=== PATIENT | male | born 1975 ===

== ENCOUNTER 2017-01-13 10:58 | Inpatient (IN) | payer OTHER ==
[2017-01-13 11:16] VITALS: O2SAT 98
[2017-01-13] MEDS ORDERED: Piperacillin/Tazobact 3.375 gm 100 ML IVPB STA (11:47)
[2017-01-13 12:12] LABS: BASO # 0.02 K/mm3 (0.0-2.0); BASO % 0.2 % (0.0-3.0); EOS # 0.6 (0.0-0.7); EOS % 6.1 % (1.5-5.0); GRAN # 7.9 (1.4-6.5); GRAN % 75.3 % (50.0-68.0); LYMPH # 1.2 (1.2-3.4); LYMPH % 11.3 % (22.0-35.0); MEAN CELL VOLUME 83.5 fl (80.0-105.0); MEAN CORPUSCULAR HEMOGLOBIN 28.5 pg (25.0-35.0); MEAN CORPUSCULAR HGB CONC 34.1 g/dl (31.0-37.0); MEAN PLATELET VOLUME 9.9 fl (7.0-11.0); MONO # 0.7 (0.1-0.6); MONO % 7.1 % (1.0-6.0); RED CELL DISTRIBUTION WIDTH 12.7 % (11.5-14.5); WHITE BLOOD COUNT 10.5 10^3/ul (4.5-11.0)
[2017-01-13 12:23] LABS: ALB/GLOB RATIO 1.2 (1.1-1.8); ALKALINE PHOSPHATASE 95 U/L (38-126); ALT/SGPT 40 U/L (7-56); AST/SGOT 26 U/L (17-59); BILIRUBIN,TOTAL 0.7 mg/dL (0.2-1.3); BLOOD UREA NITROGEN 14 mg/dL (7-21); CALCIUM 8.9 mg/dL (8.4-10.5); CARBON DIOXIDE 30 mmol/L (21-33); CHLORIDE 102 mmol/L (95-110); GFR AFRICAN-AMERICAN > 60; GLUCOSE,RANDOM 99 mg/dL (70-110); LIPASE 119 U/L (23-300); POTASSIUM 3.7 mmol/L (3.6-5.0); SODIUM 142 mmol/L (132-148); TOTAL PROTEIN 7.5 g/dL (5.8-8.3)
[2017-01-13 12:30] LABS: PARTIAL THROMBOPLASTIN TIME 27.5 Seconds (23.7-30.8)
--- NOTE | 2017-01-13 12:45 | RAD ---
HISTORY: toe infection, needs admission COMPARISON: No prior. TECHNIQUE: Chest PA and lateral FINDINGS: LUNGS: No active pulmonary disease. PLEURA: No significant pleural effusion identified. No pneumothorax apparent. CARDIOVASCULAR: Normal. OSSEOUS STRUCTURES: No significant abnormalities. VISUALIZED UPPER ABDOMEN: Normal. OTHER FINDINGS: None. IMPRESSION: No active disease.
[2017-01-13 13:39] LABS: PH,URINE 6.5 (4.7-8.0); URINE BILIRUBIN NEGATIVE (NEGATIVE); URINE BLOOD NEGATIVE (NEGATIVE); URINE GLUCOSE (UA) NEGATIVE (NEGATIVE); URINE KETONE NEGATIVE (NEGATIVE); URINE LEUKOCYTE ESTERASE NEGATIVE Leu/uL (NEGATIVE); URINE PROTEIN TRACE mg/dL (<30 mg/dL); URINE UROBILINOGEN 0.2 E.U./dL (<1 E.U./dL)
[2017-01-13 13:41] LABS: URINE APPEARANCE CLEAR (CLEAR); URINE COLOR YELLOW (YELLOW)
[2017-01-13 13:43] LABS: URINE RBC NEGATIVE /hpf (0-2); URINE WBC NEGATIVE /hpf (0-6)
--- NOTE | 2017-01-13 13:45 | ED PDOC ---
Arrival/HPI - General Chief Complaint: Medical Clearance Time Seen by Provider: 01/13/17 11:16 Historian: Patient - History of Present Illness Narrative History of Present Illness (Text): 01/13/17 13:42 41 y.o. male whose pmhx includes dermatitis, b/L LE ulcers and a non-healing 3rd R toe ulcer, who is sent by Dr. Arcos to the ED because the patient has been taking augmentin for several days for his 3rd R toe ulcer which was found to be infected and has not been gaining any improvement and it continues to hurt. No fever. Given his no improvement, he is in the ED because he needs to be admitted for iv antibiotics and ID consult. Past Medical History - Infectious Disease Hx of Infectious Diseases: None - Psychiatric Hx Substance Use: No - Surgical History Hx Tonsillectomy: Yes - Anesthesia Hx Anesthesia: Yes Hx Anesthesia Reactions: No Family/Social History Family/Social History: No Known Family HX Smoking Status: Never Smoked Hx Alcohol Use: No Hx Substance Use: No Allergies/Home Meds Allergies/Adverse Reactions: Allergies No Known Allergies Allergy (Verified 01/13/17 11:12) Home Medications: Home Meds Medication Instructions Recorded Confirmed Amoxicillin/Potassium Clav 1 tab PO BID 01/13/17 01/13/17 [Amox-Clav 875-125 mg Tablet] Review of Systems - Physician Review All systems were reviewed & negative as marked: Yes - Review of Systems Constitutional: absent: Fevers Respiratory: absent: SOB Cardiovascular: Normal Gastrointestinal: Normal Skin: Ulcer (nonhealing ulcer R 3rd toe) Physical Exam Vital Signs Temp Pulse Resp BP Pulse Ox 01/13/17 12:16 69 18 105/71 98 01/13/17 11:15 97.8 F 73 16 107/74 98 Temperature: Afebrile Blood Pressure: Normal Pulse: Regular Respiratory Rate: Normal Appearance: Positive for: Well-Appearing, Non-Toxic, Comfortable Pain Distress: None Mental Status: Positive for: Alert and Oriented X 3 - Systems Exam Head: Present: Atraumatic, Normocephalic Pupils: Present: PERRL Extroacular Muscles: Present: EOMI Conjunctiva: Present: Normal Mouth: Present: Moist Mucous Membranes Neck: Present: Normal Range of Motion Respiratory/Chest: Present: Clear to Auscultation, Good Air Exchange. No: Respiratory Distress, Accessory Muscle Use Cardiovascular: Present: Regular Rate and Rhythm, Normal S1, S2. No: Murmurs Abdomen: Present: Normal Bowel Sounds. No: Tenderness, Distention, Peritoneal Signs Back: Present: Normal Inspection Upper Extremity: Present: Normal Inspection. No: Cyanosis, Edema Lower Extremity: Present: Other (b/L LE were just dressed by Dr. Arcos - will not take down) Neurological: Present: GCS=15, CN II-XII Intact, Speech Normal Skin: Present: Warm, Dry, Normal Color. No: Rashes Psychiatric: Present: Alert, Oriented x 3, Normal Insight, Normal Concentration Medical Decision Making ED Course and Treatment: 01/13/17 13:47 Patient with R 3rd toe ulcer infection, sent for admission for iv antibiotics and ID consult - will start zosyn and vanco and consult placed for Dr. Soto. Patient is being admitted because he has failed outpatient antibiotic therapy. He will also need a MRI to r/o osteomyelitis. Case discussed with Dr. Oliva for admission to the hospitalist service. EKG: NSR @ 71; no ST/T changes; normal intervals; normal axis. - Lab Interpretations Lab Results: 01/13/17 12:08 01/13/17 12:08 Lab Results 01/13/17 12:08: Sodium 142, Potassium 3.7, Chloride 102, Carbon Dioxide 30, Anion Gap 14, BUN 14, Creatinine 1.0, Est GFR ( Amer) > 60, Est GFR (Non- Af Amer) > 60, Random Glucose 99, Calcium 8.9, Total Bilirubin 0.7, AST 26, ALT 40, Alkaline Phosphatase 95, Total Protein 7.5, Albumin 4.1, Globulin 3.4, Albumin/Globulin Ratio 1.2, Lipase 119 01/13/17 12:08: PT 10.8, INR 1.00, APTT 27.5 01/13/17 12:08: WBC 10.5 D, RBC 4.67, Hgb 13.3 L, Hct 39.0 L, MCV 83.5, MCH 28.5, MCHC 34.1, RDW 12.7, Plt Count 253, MPV 9.9, Gran % 75.3 H, Lymph % (Auto ) 11.3 L, [place] % (Auto) 7.1 H, Eos % (Auto) 6.1 H, Baso % (Auto) 0.2, Gran # 7.90 H, Lymph # 1.2, [place] # 0.7 H, Eos # 0.6, Baso # 0.02 - RAD Interpretation Radiology Orders: 01/13/17 11:49 CHEST TWO VIEWS (PA/LAT) [RAD] Stat - Medication Orders Current Medication Orders: Discontinued Medications Vancomycin HCl 1 gm/ Sodium (Chloride) 250 mls @ 133.333 mls/hr IV STAT STA PRN Reason: Protocol Stop: 01/13/17 13:39 Last Admin: 01/13/17 13:07 Dose: 133.333 mls/hr eMAR Start Stop Document 01/13/17 13:07 IT (Rec: 01/13/17 13:08 IT [id number]) Intravenous Solution Start Date 01/13/17 Start Time 13:07 End Date 01/13/17 End time 15:02 Total Infusion Time 115 Piperacillin Sod/Tazobactam Sod (Zosyn 3.375 In Ns 100ml) 100 mls @ 200 mls/hr IVPB STAT STA PRN Reason: Protocol Stop: 01/13/17 12:16 Last Admin: 01/13/17 12:34 Dose: 200 mls/hr eMAR Start Stop Document 01/13/17 12:34 IT (Rec: 01/13/17 12:34 IT [id number]) Intravenous Solution Start Date 01/13/17 Start Time 12:30 End Date 01/13/17 End time 13:00 Total Infusion Time 30 Disposition/Present on Arrival - Present on Arrival Any Indicators Present on Arrival: No History of DVT/PE: No History of Uncontrolled Diabetes: No Urinary Catheter: No History of Decub. Ulcer: No History Surgical Site Infection Following: None - Disposition Have Diagnosis and Disposition been Completed?: Yes Diagnosis: Infected stasis ulcer of left lower extremity Disposition: HOSPITALIZED Disposition Time: 12:00 Patient Plan: Admission Condition: FAIR
[2017-01-13 13:56] LABS: MAGNESIUM 2.2 mg/dL (1.7-2.2); PHOSPHOROUS 3.3 mg/dL (2.5-4.5)
[2017-01-13] MEDS ORDERED: Piperacillin/Tazobact 3.375 gm 100 ML IVPB SCH (14:00)
--- NOTE | 2017-01-13 14:15 | CP.PCM.HP ---
<Joan Melo - Last Filed: 01/13/17 14:38> History of Present Illness - History of Present Illness History of Present Illness: Patient is a 41 year old male with history of eczema was sent to the ED by Manager [employer] for evaluation of non-healing R toe ulcer on 3rd toe. Per director transition , patient had failed outpatient therapy. Was prescribed Augmentin, which he took for two days. Patient states that toe ulcer started in May 2016. Initially started with swelling then has progressively gotten worse. Occasionally has shooting pain in between 3rd and 4th toe, however has not taken pain medication for it. Patient sees director transition for wound care once a week. Never had this in the past. Denies any drainage from the wound, only reports having minimal bleeding. Wound cx and sensitivities from 01/11/17 growing staph aureus. Denies any trauma, fevers, chills, nausea, vomiting, numbness, tingling, cp, palpitations, sob, urinary symptoms, changes in bowel habits. Allergies: NKDA, dairy products exacerbates eczema Medications: Augmentin BID Medical Hx: Eczema Surgical Hx: Tonsillectomy at age 7 Social Hx: Denies alcohol, tobacco, drug use Family Hx: Maternal grandmother - DM Present on Admission - Present on Admission Any Indicators Present on Admission: No History of DVT/PE: No History of Uncontrolled Diabetes: No Urinary Catheter: No Decubitus Ulcer Present: No Review of Systems - Constitutional Constitutional: absent: Chills, Fever - EENT Eyes: absent: Change in Vision Ears: absent: Decreased Hearing, Dizziness - Cardiovascular Cardiovascular: Leg Ulcers. absent: Chest Pain, Dyspnea, Lightheadedness - Respiratory Respiratory: absent: Cough, Wheezing - Gastrointestinal Gastrointestinal: absent: Abdominal Pain, Constipation, Diarrhea, Nausea, Vomiting - Genitourinary Genitourinary: absent: Dysuria - Musculoskeletal Musculoskeletal: absent: Numbness, Tingling - Integumentary Integumentary: Dry Skin - Neurological Neurological: absent: Dizziness, Numbness, Headaches, Tingling, Weakness - Psychiatric Psychiatric: absent: Anxiety, Depression Past Patient History - Infectious Disease Hx of Infectious Diseases: None - Past Social History Smoking Status: Never Smoked - PSYCHIATRIC Hx Substance Use: No - SURGICAL HISTORY Hx Tonsillectomy: Yes - ANESTHESIA Hx Anesthesia: Yes Hx Anesthesia Reactions: No Meds Allergies/Adverse Reactions: Allergies Allergy/AdvReac Type Severity Reaction Status Date / Time No Known Allergies Allergy Verified 01/13/17 11:12 Physical Exam - Constitutional Appears: Well, Toxic - Head Exam Head Exam: ATRAUMATIC, NORMAL INSPECTION - Eye Exam Eye Exam: EOMI, Normal appearance Pupil Exam: NORMAL ACCOMODATION - ENT Exam ENT Exam: Mucous Membranes Moist - Neck Exam Neck exam: Positive for: Full Rom - Respiratory Exam Respiratory Exam: Clear to Auscultation Bilateral, NORMAL BREATHING PATTERN. absent: Rales, Rhonchi, Wheezes - Cardiovascular Exam Cardiovascular Exam: REGULAR RHYTHM, +S1, +S2 - GI/Abdominal Exam GI & Abdominal Exam: Normal Bowel Sounds, Soft. absent: Rebound, Rigid, Tenderness - Extremities Exam Extremities exam: Positive for: pedal pulses present. Negative for: calf tenderness Additional comments: Bandage in place by podiatry, extremity exam limited - Back Exam Back exam: NORMAL INSPECTION - Neurological Exam Neurological exam: Alert, CN II-XII Intact, Normal Gait, Oriented x3 - Psychiatric Exam Psychiatric exam: Normal Affect, Normal Mood - Skin Skin Exam: Dry, Normal Color, Warm Results - Vital Signs Recent Vital Signs: Last Vital Signs Temp 98.5 F 01/13/17 13:43 Pulse 70 01/13/17 13:43 Resp 18 01/13/17 13:43 BP 108/79 01/13/17 13:43 Pulse Ox 98 01/13/17 13:43 - Labs Result Diagrams: 01/13/17 12:08 01/13/17 12:08 Labs: Laboratory Results - last 24 hr 01/13/17 13:26 Urine Color Yellow Urine Appearance Clear Urine pH 6.5 Ur Specific [place] 1.020 Urine Protein Trace H Urine Glucose (UA) Negative Urine Ketones Negative Urine Blood Negative Urine Nitrate Negative Urine Bilirubin Negative Urine Urobilinogen 0.2 Ur Leukocyte Esterase Negative Urine RBC Negative Urine WBC Negative Urine Other Mucus Assessment & Plan - Assessment and Plan (Free Text) Assessment: 41 year old male with past medical history of ezcema presents with worsening non -healing R toe ulcer Plan: 1. Worsening non-healing R toe ulcer (Rule out osteomyeolitis) -Stable, afebrile -Abx: vancomycin 1g Q12H, Zosyn 3.375mg Q8H -Wound cx growing staph aureus, sensitivites reviewed -MRI R foot with/without contrast ordered -F/U procalcitonin, ESR/CRP -Tylenol prn pain -MRI from 08/2016 - no evidence of osteo, X Ray from 10/2016 was normal -ID on consult, f/u recommendations -Podiatry on consult, f/u recommendations GI/DVT ppx -Protonix 40mg PO daily -Lovenox 30 sq daily <Marleni Bowden - Last Filed: 01/13/17 17:53> Results - Vital Signs Recent Vital Signs: Last Vital Signs Temp 98.5 F 01/13/17 13:43 Pulse 70 01/13/17 13:43 Resp 18 01/13/17 13:43 BP 108/79 01/13/17 13:43 Pulse Ox 98 01/13/17 13:43 - Labs Result Diagrams: 01/13/17 12:08 01/13/17 12:08 Labs: Laboratory Results - last 24 hr 01/13/17 13:26 Urine Color Yellow Urine Appearance Clear Urine pH 6.5 Ur Specific [place] 1.020 Urine Protein Trace H Urine Glucose (UA) Negative Urine Ketones Negative Urine Blood Negative Urine Nitrate Negative Urine Bilirubin Negative Urine Urobilinogen 0.2 Ur Leukocyte Esterase Negative Urine RBC Negative Urine WBC Negative Urine Other Mucus Attending/Attestation - Attestation I have personally seen and examined this patient.: Yes I have fully participated in the care of the patient.: Yes I have reviewed all pertinent clinical information: Yes Notes (Text): I have seen and examined the patient at bedside. Agree with the above note with the following additions/ exceptions: Briefly this is 41 year old male with history of eczema who was sent by director transition for evaluation of worsening chronic non healing ulcer on the right toe. Osteomyelitis needs to be ruled out. Will do MRI, wound cultures and procal. Start vanco and zosyn. Will do MICHAEL. Will consult ID and podiatry. Upon discharge patient will follow up with Dr Dai. Dr Marleni Bowden
[2017-01-13] MEDS ORDERED: Vancomycin 1gm in NS 250ml 1 GM/250 ML BAG IVPB SCH (14:30)
--- NOTE | 2017-01-13 16:42 | CP.PCM.CON ---
History of Present Illness - History of Present Illness History of Present Illness: Infectious Disease Consultation: January 13, 2017 41 yo male with history of eczema presented to Wound Care clinic for non- healing toe ulcer of the right third toe. The patient was given Augmentin in the outpatient setting without improvement. The patient states that the ulcer has been present since May 2016. Multiple wound cultures are showing MSSA however I do suspect the patient has some level of peripheral vascular disease. Corynebacterium seen in one wound culture in the past month as well. PMHx: Eczema PSHx: Tonsillectomy at age 7 Allergies: NKDA Social Hx: No tobacco, EtOH, or illicit drug use Active Medications Acetaminophen (Tylenol 325mg Tab) 650 mg PO Q6H PRN PRN Reason: Pain, Mild (1-3) Piperacillin Sod/Tazobactam Sod (Zosyn 3.375 In Ns 100ml) 100 mls @ 200 mls/hr IVPB Q8 JAVIER PRN Reason: Protocol Stop: 01/13/17 22:29 Vancomycin HCl (Vancomycin 1gm) 1 gm in 250 mls @ 167 mls/hr IVPB Q12H JAVIER PRN Reason: Protocol Family Hx: DM - grandmother ROS: No fevers, chills, nausea, vomiting, diarrhea, headaches, dizziness, chest pain , abdominal pain, melena, hematuria, hematemesis, hematochezia, depression, anxiety. Past Patient History - Infectious Disease Hx of Infectious Diseases: None - Past Social History Smoking Status: Never Smoked - PSYCHIATRIC Hx Substance Use: No - SURGICAL HISTORY Hx Tonsillectomy: Yes - ANESTHESIA Hx Anesthesia: Yes Hx Anesthesia Reactions: No Meds Allergies/Adverse Reactions: Allergies Allergy/AdvReac Type Severity Reaction Status Date / Time No Known Allergies Allergy Verified 01/13/17 11:12 - Medications Medications: Current Medications Acetaminophen (Tylenol 325mg Tab) 650 mg PO Q6H PRN PRN Reason: Pain, Mild (1-3) Piperacillin Sod/Tazobactam Sod (Zosyn 3.375 In Ns 100ml) 100 mls @ 200 mls/hr IVPB Q8 JAVIER PRN Reason: Protocol Stop: 01/13/17 22:29 Vancomycin HCl (Vancomycin 1gm) 1 gm in 250 mls @ 167 mls/hr IVPB Q12H JAVIER PRN Reason: Protocol Physical Exam - Constitutional Appears: Non-toxic, No Acute Distress, Chronically Ill - Head Exam Head Exam: ATRAUMATIC, NORMOCEPHALIC - Eye Exam Eye Exam: EOMI, PERRL Pupil Exam: NORMAL ACCOMODATION, PERRL - ENT Exam ENT Exam: Mucous Membranes Moist, Normal External Ear Exam, TM's Normal Bilaterally - Neck Exam Neck exam: Positive for: Full Rom, Normal Inspection - Respiratory Exam Respiratory Exam: Clear to Auscultation Bilateral, NORMAL BREATHING PATTERN. absent: Rales, Rhonchi, Wheezes - Cardiovascular Exam Cardiovascular Exam: REGULAR RHYTHM, RRR, +S1, +S2 - GI/Abdominal Exam GI & Abdominal Exam: Normal Bowel Sounds, Soft. absent: Distended, Tenderness - Extremities Exam Extremities exam: Positive for: joint swelling, pedal edema Additional comments: right 3rd toe ulceration... heavily bandaged. - Neurological Exam Neurological exam: Alert, CN II-XII Intact, Oriented x3 - Psychiatric Exam Psychiatric exam: Normal Affect, Normal Mood - Skin Additional comments: As above. Results - Vital Signs Recent Vital Signs: Last Vital Signs Temp 98.5 F 01/13/17 13:43 Pulse 70 01/13/17 13:43 Resp 18 01/13/17 13:43 BP 108/79 01/13/17 13:43 Pulse Ox 98 01/13/17 13:43 - Labs Result Diagrams: 01/13/17 12:08 01/13/17 12:08 Labs: Laboratory Results - last 24 hr 01/13/17 13:26 Urine Color Yellow Urine Appearance Clear Urine pH 6.5 Ur Specific [place] 1.020 Urine Protein Trace H Urine Glucose (UA) Negative Urine Ketones Negative Urine Blood Negative Urine Nitrate Negative Urine Bilirubin Negative Urine Urobilinogen 0.2 Ur Leukocyte Esterase Negative Urine RBC Negative Urine WBC Negative Urine Other Mucus Assessment & Plan - Assessment and Plan (Free Text) Assessment: 41 yo male giving only a past medical history of eczema. The patient has a right foot 3rd toe ulceration present for over 7 months with treatment with Augmentin. The patient has grown MSSA on multiple cultures taken since June 2016 and as resent as December 2016. Noted MRI ordered. Started on Vancomycin and Zosyn for antibiotic coverage. Renal function is adequate. Given the culture results, would consider deescalation of the Zosyn to nafcillin , Ancef, or Unasyn. I do suspect concentration of antibiotic given orally was low and the patient may have some level of peripheral vascular disease. Spoke with Dr. Arcos earlier. Spoke with Dr. Jazlyn Bowden this afternoon. Thank you for allowing me to participate in the care of the patient, we will follow with you.
[2017-01-13 17:50] VITALS: BMI 26.5
[2017-01-13] MEDS ORDERED: Pneumococcal 23-Valent Vaccine IM ONE (17:51)
[2017-01-13] MEDS ORDERED: Gadodiamide 287 MG/ML VIAL (15ML) IV ONE (18:20)
--- NOTE | 2017-01-13 20:17 | MRI ---
EXAM: MR Right Lower Extremity Without and With Intravenous Contrast, Foot EXAM DATE/TIME: 01/13/2017 1:48 PM CLINICAL HISTORY: The patient age is 41 years old and is male; Pain; Foot; Right; Patient HX: ? Osteo; Additional info: Rule out osteomyeolitis Facility exam id and description: Mri footwwort foot w/ w/o contrast right TECHNIQUE: Multiplanar magnetic resonance images of the right foot without and with intravenous contrast. CONTRAST: 15 mL of omniscan administered intravenously. COMPARISON: MR - FOOT W/O CONTRAST RIGHT 08/31/2016 11:41:35 AM FINDINGS: LIGAMENTS: Medial collateral: No visible acute tear. Lateral collateral: No visible acute tear. Lisfranc: No visualized acute tear. TENDONS: Flexor: No visualized acute tear. Extensor: No visualized acute tear. Muscles: No acute abnormality. Fluid: Minimal effusions are identified within the first MTP joint and first IP joint. There is a small tibiotalar joint effusion extending posterior to the joint. Sinus tarsi: Mild edema is identified within the sinus tarsi. Plantar fascia: No visualized acute tear. Bones/joints: There is significant enhancing edema identified involving the middle third phalanx, with additional edema within the proximal third phalanx. This is consistent with osteomyelitis in the appropriate clinical setting, and a progression compared to the prior study. Soft tissues: There is significant soft tissue swelling at the dorsum of the foot, suggestive of cellulitis. Additional soft tissue swelling is identified of the first through third digits. Other findings: The hindfoot extends out of the field of view of this study. IMPRESSION: 1. There is significant soft tissue swelling at the dorsum of the foot, suggestive of cellulitis. Additional soft tissue swelling is identified of the first through third digits. 2. There is significant enhancing edema identified involving the middle third phalanx, with additional edema within the proximal third phalanx. This is consistent with osteomyelitis in the appropriate clinical setting, and a progression compared to the prior study. 3. Minimal effusions are identified within the first MTP joint and first IP joint. 4. Additional findings described above.
[2017-01-13] MEDS: ceFAZolin 1 gm in NS 1 GM/100 ML BAG IVPB SCH ×2 (20:35→21:00)
[2017-01-13] MEDS: Vancomycin 1gm in NS 250ml 1 GM/250 ML BAG IVPB SCH (21:46)
[2017-01-14] MEDS: Pantoprazole 40 mg EC Tab PO SCH ×2 (05:44→05:47)
[2017-01-14] MEDS: ceFAZolin 1 gm in NS 1 GM/100 ML BAG IVPB SCH ×3 (05:44→21:28)
[2017-01-14 07:12] LABS: BASO # 0.01 K/mm3 (0.0-2.0); BASO % 0.2 % (0.0-3.0); EOS # 0.6 (0.0-0.7); GRAN # 3.33 (1.4-6.5); GRAN % 51.9 % (50.0-68.0); HEMATOCRIT 36.8 % (42.0-52.0); LYMPH # 1.9 (1.2-3.4); LYMPH % 29.2 % (22.0-35.0); MEAN CELL VOLUME 83.6 fl (80.0-105.0); MEAN CORPUSCULAR HGB CONC 33.4 g/dl (31.0-37.0); MEAN PLATELET VOLUME 9.9 fl (7.0-11.0); MONO # 0.6 (0.1-0.6); MONO % 8.7 % (1.0-6.0); RED CELL DISTRIBUTION WIDTH 12.6 % (11.5-14.5); WHITE BLOOD COUNT 6.4 10^3/ul (4.5-11.0)
[2017-01-14 07:27] LABS: ALB/GLOB RATIO 1.2 (1.1-1.8); ALKALINE PHOSPHATASE 77 U/L (38-126); ALT/SGPT 30 U/L (7-56); AST/SGOT 21 U/L (17-59); BILIRUBIN,TOTAL 0.7 mg/dL (0.2-1.3); BLOOD UREA NITROGEN 11 mg/dL (7-21); CALCIUM 8.7 mg/dL (8.4-10.5); CARBON DIOXIDE 27 mmol/L (21-33); CHLORIDE 106 mmol/L (98-107); GFR AFRICAN-AMERICAN > 60; GLUCOSE,RANDOM 90 mg/dL (70-110); POTASSIUM 3.5 mmol/L (3.6-5.0); SODIUM 141 mmol/L (132-148); TOTAL PROTEIN 6.4 g/dL (5.8-8.3)
--- NOTE | 2017-01-14 08:18 | CARD ---
APPROVED REPORT EKG Measurement Heart [id number] <Conclusion> Normal sinus rhythm Normal ECG
[2017-01-14] MEDS ORDERED: Potassium Chloride 40 mEq/30 ml LIQ UD PO ONE (08:54)
[2017-01-14] MEDS ORDERED: Vancomycin 1gm in NS 250ml 1 GM/250 ML BAG IVPB SCH (10:00)
--- NOTE | 2017-01-14 11:12 | US ---
PROCEDURE: Lower extremity MICHAEL exam HISTORY: Peripheral vascular disease with pain and claudication. PHYSICIAN(S): Dwain Bradshaw MD. FINDINGS: The resting MICHAEL's are normal: right, 1.14and left, 1.19. The brachial systolic pressures are symmetric. The high thigh pressures and waveforms are relatively normal. The calf PVR waveforms augment normally. No significant gradients are noted across the thighs. The ankle and metatarsal waveforms are relatively normal and symmetric. No significant pressure gradients are noted across the lower legs. IMPRESSION: 1. Normal MICHAEL and PVR examination at rest.
--- NOTE | 2017-01-14 11:26 | CP.PCM.PN ---
<Joan Melo - Last Filed: 01/14/17 17:25> Subjective - Date & Time of Evaluation Date of Evaluation: 01/14/17 Time of Evaluation: 07:10 - Subjective Subjective: Hospitalist Service Progress Note: Patient seen and examined at bedside. Per nursing no acute events overnight. Patient is doing well, offers no complaints at this time. Dressing changed by podiatry this am. Denies pain, fever, chills, nausea, vomiting, cp, palpitations , sob, abdominal pain, urinary symptoms. Objective - Vital Signs/Intake and Output Vital Signs (last 24 hours): Temp Pulse Resp BP Pulse Ox 97.6 F 63 20 96/57 L 98 01/14/17 08:32 01/14/17 08:32 01/14/17 08:32 01/14/17 08:32 01/14/17 08:32 Intake and Output: 01/14/17 01/14/17 06:59 18:59 Intake Total 690 Balance 690 - Medications Medications: Current Medications Acetaminophen (Tylenol 325mg Tab) 650 mg PO Q6H PRN PRN Reason: Pain, Mild (1-3) Vancomycin HCl (Vancomycin 1gm) 1 gm in 250 mls @ 167 mls/hr IVPB Q12 JAVIER PRN Reason: Protocol Last Admin: 01/13/17 21:46 Dose: 167 mls/hr Cefazolin Sodium (Ancef 1gm In Ns) 1 gm in 100 mls @ 100 mls/hr IVPB Q8 JAVIER PRN Reason: Protocol Last Admin: 01/14/17 05:44 Dose: 100 mls/hr Pantoprazole Sodium (Protonix Ec Tab) [address] [facility] Last Admin: 01/14/17 05:47 Dose: Not Given - Labs Labs: 01/14/17 06:50 01/14/17 06:50 PT 10.8 Seconds (9.9-11.8) 01/13/17 12:08 INR 1.00 (0.93-1.08) 01/13/17 12:08 APTT 27.5 Seconds (23.7-30.8) 01/13/17 12:08 - Constitutional Appears: Non-toxic, No Acute Distress - Head Exam Head Exam: ATRAUMATIC, NORMAL INSPECTION - Eye Exam Eye Exam: EOMI, Normal appearance Pupil Exam: NORMAL ACCOMODATION - ENT Exam ENT Exam: Mucous Membranes Moist - Neck Exam Neck Exam: Full ROM - Respiratory Exam Respiratory Exam: Clear to Ausculation Bilateral, NORMAL BREATHING PATTERN. absent: Rales, Rhonchi, Wheezes - Cardiovascular Exam Cardiovascular Exam: REGULAR RHYTHM, +S1, +S2 - GI/Abdominal Exam GI & Abdominal Exam: Soft, Normal Bowel Sounds. absent: Guarding, Rigid, Tenderness - Extremities Exam Extremities Exam: Full ROM. absent: Calf Tenderness Additional comments: Limited extremity exam, wounds dressed by podiatry - Back Exam Back Exam: NORMAL INSPECTION - Neurological Exam Neurological Exam: Alert, Awake, Normal Gait, Oriented x3 - Psychiatric Exam Psychiatric exam: Normal Affect, Normal Mood - Skin Skin Exam: Dry, Normal Color, Warm Assessment and Plan - Assessment and Plan (Free Text) Assessment: 41 year old male with past medical history of ezcema presents with worsening non -healing R toe ulcer Plan: 1. Worsening non-healing R toe ulcer (Rule out osteomyeolitis) -Stable, afebrile -MRI finding consistent with osteomyelotits -Abx: Vancomycin 1g Q12H, Ancef 1g Q8H -Wound cx growing staph aureus, sensitivites reviewed -Patient will need 4-6 weeks of IV abx, will need PICC line -HBO therapy to begin tomorrow -Tylenol prn pain -ID on consult, f/u recommendations -Podiatry on consult, f/u recommendations 2. Hypokalemia -Potassium 3.5 today, repleted -Continue to monitor GI/DVT ppx -Protonix 40mg PO daily -Lovenox 30 sq daily <Marleni Bowden - Last Filed: 01/16/17 13:39> Objective - Vital Signs/Intake and Output Vital Signs (last 24 hours): Temp Pulse Resp BP Pulse Ox 97.5 F L 69 18 110/71 98 01/15/17 07:49 01/15/17 07:49 01/15/17 07:49 01/15/17 07:49 01/15/17 07:49 - Labs Labs: 01/15/17 06:30 01/15/17 06:30 PT 10.8 Seconds (9.9-11.8) 01/13/17 12:08 INR 1.00 (0.93-1.08) 01/13/17 12:08 APTT 27.5 Seconds (23.7-30.8) 01/13/17 12:08 Attending/Attestation - Attestation I have personally seen and examined this patient.: Yes I have fully participated in the care of the patient.: Yes I have reviewed all pertinent clinical information, including history, physical exam and plan: Yes Notes (Text): I have seen and examined the patient at bedside. 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 MRI is consistent with Osteomyelitis. Patient will need 4-6week of Rocephin which needs to be arranged. Will discuss with CM. MICHAEL showed normal PVR. ID and podiatry consult appreciated. Upon discharge patient will follow up with Dr Dai. Dr Marleni Bowden
--- NOTE | 2017-01-14 11:41 | PN ---
DATE: 01/14/2017 SUBJECTIVE: This is a 41-year-old known to me, seeing for ulceration to his third toe on his right foot and a nonhealing ulceration to the medial calf on his left leg. The patient was sent by me yesterday to the hospital for acute care secondary to being on outpatient Augmentin with a high suspicion of osteomyelitis to the foot. When he was seen yesterday, the toe was still swollen and red and it was decided to start IV antibiotics. PHYSICAL EXAMINATION: GENERAL: The patient is seen at bedside. He is alert and oriented and in no acute distress. VITAL SIGNS: His temperature is 97.6, pulse is 63, blood pressure 96/57, respirations are 20 and oxygen saturation was 98%. EXTREMITIES: The patient's lower extremity was reviewed. He has 2/4 palpable pedal pulses bilaterally. He has intact neurological sensation to his feet bilateral. He has intact musculoskeletal structures to the feet bilateral. 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 The ulceration on his calf had healed and just recently opened with the new onset of this toe infection. The patient did have a foot MRI and the MRI is positive for osteomyelitis of that third toe. The toe at the present time has no bone exposed, there is no tendon exposed, but the wound is deep through the fat layers; the measurements are approximately 3.5 x 0.5 x 0.3 cm in depth. There is no pus, there is a moderate amount of drainage, but the toe itself is red and swollen which clinically correlates the MRI findings. LABORATORY DATA: The patient's labs show white blood cell count of 6.4, H and H is 12.3 and 36.8. ESR is only 15. The patient's microbiology; his left culture was done on 01/11 and it was for a sensitive Staphylococcus aureus. The patient's chemistry also was reviewed and that was grossly within normal limits. ASSESSMENT: Sensitive Staphylococcus aureus infection to the third toe, osteomyelitis, right foot. PLAN OF TREATMENT: The patient will need 4 to 6 weeks of IV antibiotics as determined by infectious disease. The patient also will be considered for hyperbaric oxygen therapy. The patient will be put on consult to have Dr. Lew look at him and see if he is a candidate and he will also need a PICC line, order was placed on the chart today. The patient's wounds were dressed today with Xeroform and a dry sterile dressing, which will be the dressing of choice while he is here on his foot and also on his leg. The patient will be seen and followed. Mallika Arcos DPM
[2017-01-14] MEDS: Vancomycin 1gm in NS 250ml 1 GM/250 ML BAG IVPB SCH ×2 (11:49→22:38)
--- NOTE | 2017-01-14 17:24 | CON ---
DATE: HISTORY OF PRESENT ILLNESS: I was called to see him by Dr. Arcos, the inspector set up and lay out who cleared him medically for hyperbaric oxygen. He is a 41-year-old man who presents with bilateral lower extremity ulcers and nonhealing third right toe ulcer. He is on Augmentin on the outpatient. It did not heal. he came to the hospital. On MRI, it shows osteomyelitis and cellulitis. PAST MEDICAL HISTORY: He has a past medical history of nonhealing ulcers in the past. He has had a tonsillectomy in the past. FAMILY HISTORY: No known family history. SOCIAL HISTORY: Never smoked or drugs. No alcohol. MEDICATIONS: He is on Augmentin that was the only medication he was on the outpatient. ALLERGIES: NO KNOW DRUG ALLERGIES. REVIEW OF SYSTEMS: No acute vision changes or hearing changes. No sore throat. No neck pain. No chest pain or palpitations. No coughing or shortness of breath. No mucus. No wheezing. No abdominal pain. No nausea, vomiting, constipation or diarrhea. He has a right third toe ulcer, nonhealing. PHYSICAL EXAMINATION: VITAL SIGNS: He has a 97.8 temperature, 73 pulse, 16 respiratory rate, 107/74 blood pressure, 90% O2 sat on room air. HEENT: Head is atraumatic, normocephalic. Extraocular muscles are intact. Pupils are equal, reactive to light and accommodation. Throat is moist. NECK: Supple. GENERAL: Alert, oriented x3, well-appearing, comfortable. HEART: Regular rate. Normal S1 and S2. LUNGS: Decreased breath sounds, but clear to auscultation. ABDOMEN: Soft, nontender. Positive bowel sounds. No guarding. No rebound. No CVA tenderness. EXTREMITIES: The right foot is bandaged. He has got a third right foot ulcer, nonhealing. There is no edema of the extremities. NEUROLOGIC: GCS is 15. Cranial nerves II through XII grossly intact. Alert, oriented x3. SKIN: Warm and dry except for the right foot ulcer. LABORATORY DATA: He had multiple tests done here. He has a 6.4 white count, 12.3 hemoglobin, 36.8 hematocrit with 235 platelets. The INR is 1. He has a 141 sodium, potassium 3.5, BUN is 11, creatinine 0.9, GFR is greater than 60, sugar is 90, calcium is 8.7, total bilirubin is 0.7, AST is 21, ALT is 30, alkaline phosphatase 77, total protein 6.4, C-reactive protein His urine was clean. He has a chest x-ray, which shows no acute disease. He has an EKG which shows normal sinus rhythm. He has an MRI of the foot, which showed cellulitis and osteomyelitis. IMPRESSION AND PLAN: He is being seen by podiatry. He is currently on Ancef, Protonix, Tylenol and vancomycin. After review of his meds, medical history, surgical history, physical exam, x-rays, EKGs, MRIs, labs and reviewing of his ears, which are clear with no wax, no infection and the tympanic membranes are visualized and fine, he is medically cleared for hyperbaric oxygen. Jose Rafael Lew DO MTDD
--- NOTE | 2017-01-14 18:59 | CP.PCM.PN ---
Subjective - Date & Time of Evaluation Date of Evaluation: 01/14/17 Time of Evaluation: 16:45 - Subjective Subjective: Infectious Disease Follow Up: January 14, 2017 41 yo male with history of eczema presented to Wound Care clinic for non- healing toe ulcer of the right third toe. The patient was given Augmentin in the outpatient setting without improvement. The patient states that the ulcer has been present since May 2016. Multiple wound cultures are showing MSSA however I do suspect the patient has some level of peripheral vascular disease. Corynebacterium seen in one wound culture in the past month as well. MRI showing osteomyelitis. Objective - Vital Signs/Intake and Output Vital Signs (last 24 hours): Temp Pulse Resp BP Pulse Ox 97.4 F L 70 16 109/66 98 01/14/17 16:00 01/14/17 16:00 01/14/17 16:00 01/14/17 16:00 01/14/17 16:00 Intake and Output: 01/14/17 01/14/17 06:59 18:59 Intake Total 690 660 Output Total 0 Balance 690 660 - Medications Medications: Current Medications Acetaminophen (Tylenol 325mg Tab) 650 mg PO Q6H PRN PRN Reason: Pain, Mild (1-3) Vancomycin HCl (Vancomycin 1gm) 1 gm in 250 mls @ 167 mls/hr IVPB Q12 JAVIER PRN Reason: Protocol Last Admin: 01/14/17 11:49 Dose: 167 mls/hr Cefazolin Sodium (Ancef 1gm In Ns) 1 gm in 100 mls @ 100 mls/hr IVPB Q8 JAVIER PRN Reason: Protocol Last Admin: 01/14/17 14:33 Dose: 100 mls/hr Pantoprazole Sodium (Protonix Ec Tab) 40 mg PO 0600 [facility] Last Admin: 01/14/17 05:47 Dose: Not Given - Labs Labs: 01/14/17 06:50 01/14/17 06:50 PT 10.8 Seconds (9.9-11.8) 01/13/17 12:08 INR 1.00 (0.93-1.08) 01/13/17 12:08 APTT 27.5 Seconds (23.7-30.8) 01/13/17 12:08 - Constitutional Appears: Non-toxic, No Acute Distress, Chronically Ill - Head Exam Head Exam: ATRAUMATIC, NORMOCEPHALIC - Eye Exam Eye Exam: EOMI, PERRL Pupil Exam: NORMAL ACCOMODATION, PERRL - ENT Exam ENT Exam: Mucous Membranes Moist, Normal External Ear Exam, TM's Normal Bilaterally - Neck Exam Neck Exam: Full ROM, Normal Inspection - Respiratory Exam Respiratory Exam: Clear to Ausculation Bilateral, NORMAL BREATHING PATTERN. absent: Rales, Rhonchi, Wheezes - Cardiovascular Exam Cardiovascular Exam: REGULAR RHYTHM, RRR, +S1, +S2 - GI/Abdominal Exam GI & Abdominal Exam: Soft, Normal Bowel Sounds. absent: Distended, Tenderness - Extremities Exam Extremities Exam: Joint Swelling, Pedal Edema Additional comments: right 3rd toe ulceration... heavily bandaged. - Neurological Exam Neurological Exam: Alert, Awake, CN II-XII Intact, Oriented x3 - Psychiatric Exam Psychiatric exam: Normal Affect, Normal Mood - Skin Additional comments: As above Assessment and Plan - Assessment and Plan (Free Text) Assessment: 41 yo male giving only a past medical history of eczema. The patient has a right foot 3rd toe ulceration present for over 7 months with treatment with Augmentin. The patient has grown MSSA on multiple cultures taken since June 2016 and as resent as December 2016. Noted MRI ordered. Started on Vancomycin and Zosyn for antibiotic coverage. Renal function is adequate. Given the culture results, would consider deescalation of the Zosyn to nafcillin , Ancef, or Unasyn. I do suspect concentration of antibiotic given orally was low and the patient may have some level of peripheral vascular disease. Spoke with Dr. Arcos earlier. Spoke with Dr. Jazlyn Bowden. MRI showing osteomyelitis of the right 3rd toe. Can consider use of Rocephin 2gm IV daily for 6 weeks. Can be done at Home IV infusion or through IV Infusion clinic. Thank you for allowing me to participate in the care of the patient, we will follow with you.
[2017-01-15] MEDS: Pantoprazole 40 mg EC Tab PO SCH (06:35)
[2017-01-15] MEDS: ceFAZolin 1 gm in NS 1 GM/100 ML BAG IVPB SCH ×2 (06:35→13:07)
[2017-01-15 07:16] LABS: BASO # 0.01 K/mm3 (0.0-2.0); BASO % 0.1 % (0.0-3.0); EOS # 0.7 (0.0-0.7); EOS % 9.7 % (1.5-5.0); GRAN # 4.26 (1.4-6.5); GRAN % 56.1 % (50.0-68.0); HEMATOCRIT 36.7 % (42.0-52.0); LYMPH % 25.9 % (22.0-35.0); MEAN CORPUSCULAR HEMOGLOBIN 28.1 pg (25.0-35.0); MEAN CORPUSCULAR HGB CONC 33.8 g/dl (31.0-37.0); MEAN PLATELET VOLUME 9.9 fl (7.0-11.0); MONO # 0.6 (0.1-0.6); MONO % 8.2 % (1.0-6.0); RED CELL DISTRIBUTION WIDTH 12.4 % (11.5-14.5); WHITE BLOOD COUNT 7.6 10^3/ul (4.5-11.0)
[2017-01-15 07:47] LABS: ALB/GLOB RATIO 1.2 (1.1-1.8); ALKALINE PHOSPHATASE 84 U/L (38-126); ALT/SGPT 31 U/L (7-56); AST/SGOT 23 U/L (17-59); BILIRUBIN,TOTAL 0.3 mg/dL (0.2-1.3); BLOOD UREA NITROGEN 12 mg/dL (7-21); CALCIUM 8.7 mg/dL (8.4-10.5); CARBON DIOXIDE 26 mmol/L (21-33); CHLORIDE 104 mmol/L (98-107); GFR AFRICAN-AMERICAN > 60; GLUCOSE,RANDOM 93 mg/dL (70-110); POTASSIUM 3.4 mmol/L (3.6-5.0); SODIUM 140 mmol/L (132-148); TOTAL PROTEIN 6.7 g/dL (5.8-8.3)
[2017-01-15 07:50] VITALS: BP 110/71; PULSE 69; RESP 18; TEMP 97.5
[2017-01-15] MEDS: Vancomycin 1gm in NS 250ml 1 GM/250 ML BAG IVPB SCH (09:04)
[2017-01-15] MEDS ORDERED: Potassium Chloride 20 mEq ER Tab PO ONE (09:21)
--- NOTE | 2017-01-15 16:52 | CP.PCM.PN ---
Subjective - Date & Time of Evaluation Date of Evaluation: 01/15/17 Time of Evaluation: 15:15 - Subjective Subjective: Infectious Disease Follow Up: January 14, 2017 41 yo male with history of eczema presented to Wound Care clinic for non- healing toe ulcer of the right third toe. The patient was given Augmentin in the outpatient setting without improvement. The patient states that the ulcer has been present since May 2016. Multiple wound cultures are showing MSSA however I do suspect the patient has some level of peripheral vascular disease. Corynebacterium seen in one wound culture in the past month as well. MRI showing osteomyelitis. Can use Rocephin on discharge for antibiotic treatment. Objective - Vital Signs/Intake and Output Vital Signs (last 24 hours): Temp Pulse Resp BP Pulse Ox 97.5 F L 69 18 110/71 98 01/15/17 07:49 01/15/17 07:49 01/15/17 07:49 01/15/17 07:49 01/15/17 07:49 Intake and Output: 01/15/17 01/15/17 06:59 18:59 Intake Total 1620 480 Balance 1620 480 - Medications Medications: Current Medications Acetaminophen (Tylenol 325mg Tab) 650 mg PO Q6H PRN PRN Reason: Pain, Mild (1-3) Vancomycin HCl (Vancomycin 1gm) 1 gm in 250 mls @ 167 mls/hr IVPB Q12 JAVIER PRN Reason: Protocol Last Admin: 01/15/17 09:04 Dose: 167 mls/hr Cefazolin Sodium (Ancef 1gm In Ns) 1 gm in 100 mls @ 100 mls/hr IVPB Q8 JAVIER PRN Reason: Protocol Last Admin: 01/15/17 13:07 Dose: 100 mls/hr Pantoprazole Sodium (Protonix Ec Tab) 40 mg PO 0600 [facility] Last Admin: 01/15/17 06:35 Dose: 40 mg - Labs Labs: 01/15/17 06:30 01/15/17 06:30 PT 10.8 Seconds (9.9-11.8) 01/13/17 12:08 INR 1.00 (0.93-1.08) 01/13/17 12:08 APTT 27.5 Seconds (23.7-30.8) 01/13/17 12:08 - Constitutional Appears: Non-toxic, No Acute Distress, Chronically Ill - Head Exam Head Exam: ATRAUMATIC, NORMOCEPHALIC - Eye Exam Eye Exam: EOMI, PERRL Pupil Exam: NORMAL ACCOMODATION, PERRL - ENT Exam ENT Exam: Mucous Membranes Moist, Normal External Ear Exam, TM's Normal Bilaterally - Neck Exam Neck Exam: Full ROM, Normal Inspection - Respiratory Exam Respiratory Exam: Clear to Ausculation Bilateral, NORMAL BREATHING PATTERN. absent: Rales, Rhonchi, Wheezes - Cardiovascular Exam Cardiovascular Exam: REGULAR RHYTHM, RRR, +S1, +S2 - GI/Abdominal Exam GI & Abdominal Exam: Soft, Normal Bowel Sounds. absent: Distended, Tenderness - Extremities Exam Extremities Exam: Joint Swelling, Pedal Edema Additional comments: right 3rd toe ulceration... heavily bandaged. - Neurological Exam Neurological Exam: Alert, Awake, CN II-XII Intact, Oriented x3 - Psychiatric Exam Psychiatric exam: Normal Affect, Normal Mood - Skin Additional comments: As Above Assessment and Plan - Assessment and Plan (Free Text) Assessment: 41 yo male giving only a past medical history of eczema. The patient has a right foot 3rd toe ulceration present for over 7 months with treatment with Augmentin. The patient has grown MSSA on multiple cultures taken since June 2016 and as resent as December 2016. Noted MRI ordered. Started on Vancomycin and Zosyn for antibiotic coverage. Renal function is adequate. Given the culture results, would consider deescalation of the Zosyn to nafcillin , Ancef, or Unasyn. I do suspect concentration of antibiotic given orally was low and the patient may have some level of peripheral vascular disease. Spoke with Dr. Arcos yesterday. Spoke with Dr. Jazlyn Bowden. MRI showing osteomyelitis of the right 3rd toe. Can consider use of Rocephin 2gm IV daily for 6 weeks. Can be done at Home IV infusion or through IV Infusion clinic. Thank you for allowing me to participate in the care of the patient, we will follow with you.
--- NOTE | 2017-01-15 17:00 | CP.PCM.DIS ---
<Joan Melo - Last Filed: 01/15/17 17:10> Provider - Provider Date of Admission: 01/13/17 12:56 Attending physician: Marleni Bowden MD Consults: Infectious Disease: Go Podiatry: Josselyn Time Spent in preparation of Discharge (in minutes): 40 Hospital Course - Lab Results Lab Results: Most Recent Lab Values WBC 7.6 10^3/ul (4.5-11.0) 01/15/17 06:30 RBC 4.42 10^6/uL (3.5-6.1) 01/15/17 06:30 Hgb 12.4 g/dL (14.0-18.0) L 01/15/17 06:30 Hct 36.7 % (42.0-52.0) L 01/15/17 06:30 MCV 83.0 fl (80.0-105.0) 01/15/17 06:30 MCH 28.1 pg (25.0-35.0) 01/15/17 06:30 MCHC 33.8 g/dl (31.0-37.0) 01/15/17 06:30 RDW 12.4 % (11.5-14.5) 01/15/17 06:30 Plt Count 239 10^3/uL (120.0-450.0) 01/15/17 06:30 MPV 9.9 fl (7.0-11.0) 01/15/17 06:30 Gran % 56.1 % (50.0-68.0) 01/15/17 06:30 Lymph % (Auto) 25.9 % (22.0-35.0) 01/15/17 06:30 Hale % (Auto) 8.2 % (1.0-6.0) H 01/15/17 06:30 Eos % (Auto) 9.7 % (1.5-5.0) H 01/15/17 06:30 Baso % (Auto) 0.1 % (0.0-3.0) 01/15/17 06:30 Gran # 4.26 (1.4-6.5) 01/15/17 06:30 Lymph # 2.0 (1.2-3.4) 01/15/17 06:30 Hale # 0.6 (0.1-0.6) 01/15/17 06:30 Eos # 0.7 (0.0-0.7) 01/15/17 06:30 Baso # 0.01 K/mm3 (0.0-2.0) 01/15/17 06:30 ESR 15 mm/hr (0.0-15.0) 01/13/17 12:08 PT 10.8 Seconds (9.9-11.8) 01/13/17 12:08 INR 1.00 (0.93-1.08) 01/13/17 12:08 APTT 27.5 Seconds (23.7-30.8) 01/13/17 12:08 Sodium 140 mmol/L (132-148) 01/15/17 06:30 Potassium 3.4 mmol/L (3.6-5.0) L 01/15/17 06:30 Chloride 104 mmol/L (98-107) 01/15/17 06:30 Carbon Dioxide 26 mmol/L (21-33) 01/15/17 06:30 Anion Gap 13 (10-20) 01/15/17 06:30 BUN 12 mg/dL (7-21) 01/15/17 06:30 Creatinine 0.9 mg/dL (0.5-1.4) 01/15/17 06:30 Est GFR ( Amer) > 60 01/15/17 06:30 Est GFR (Non-Af Amer) > 60 01/15/17 06:30 Random Glucose 93 mg/dL (70-110) 01/15/17 06:30 Calcium 8.7 mg/dL (8.4-10.5) 01/15/17 06:30 Phosphorus 3.3 mg/dL (2.5-4.5) 01/13/17 12:08 Magnesium 2.2 mg/dL (1.7-2.2) 01/13/17 12:08 Total Bilirubin 0.3 mg/dL (0.2-1.3) 01/15/17 06:30 AST 23 U/L (17-59) 01/15/17 06:30 ALT 31 U/L (7-56) 01/15/17 06:30 Alkaline Phosphatase 84 U/L (38-126) 01/15/17 06:30 C-React Prot High Sens 7.12 mg/L (1.00-3.00) H 01/13/17 12:08 Total Protein 6.7 g/dL (5.8-8.3) 01/15/17 06:30 Albumin 3.7 g/dL (3.0-4.8) 01/15/17 06:30 Globulin 3.0 gm/dL 01/15/17 06:30 Albumin/Globulin Ratio 1.2 (1.1-1.8) 01/15/17 06:30 Lipase 119 U/L (23-300) 01/13/17 12:08 Procalcitonin < 0.05 NG/ML (0.19-0.49) L 01/13/17 12:08 Urine Color Yellow (YELLOW) 01/13/17 13:26 Urine Appearance Clear (CLEAR) 01/13/17 13:26 Urine pH 6.5 (4.7-8.0) 01/13/17 13:26 Ur Specific [place] 1.020 (1.005-1.035) 01/13/17 13:26 Urine Protein Trace mg/dL (<30 mg/dL) H 01/13/17 13:26 Urine Glucose (UA) Negative mg/dL (NEGATIVE) 01/13/17 13:26 Urine Ketones Negative mg/dL (NEGATIVE) 01/13/17 13:26 Urine Blood Negative (NEGATIVE) 01/13/17 13:26 Urine Nitrate Negative (NEGATIVE) 01/13/17 13:26 Urine Bilirubin Negative (NEGATIVE) 01/13/17 13:26 Urine Urobilinogen 0.2 E.U./dL (<1 E.U./dL) 01/13/17 13:26 Ur Leukocyte Esterase Negative Justin/uL (NEGATIVE) 01/13/17 13:26 Urine RBC Negative /hpf (0-2) 01/13/17 13:26 Urine WBC Negative /hpf (0-6) 01/13/17 13:26 Urine Other Mucus 01/13/17 13:26 - Hospital Course Hospital Course: Patient is a 41 year old male with history of eczema who was sent by groundwater programs director for evaluation of worsening chronic non healing ulcer on the right toe. MRI of foot showed findings consistent with Osteomyelitis. Started vanco and zosyn. ID was consulted and ordered vaco and ancef. MICHAEL was normal. Podiatry was consulted and performed daily dressing changes. Patient to continue HBO treatment. PICC line was placed for continued IV abx therapy. Electrolytes were monitored and repleted as needed. On day of discharge, patient was doing well. Pain was controlled. Ambulating and tolerating diet, afebrile. Patient was medically stable for discharge. Prescription for Rocephin 2g IV daily x 6 weeks given. Patient will follow up with Dr Dai. Discharge Exam - Head Exam Head Exam: ATRAUMATIC, NORMOCEPHALIC - Eye Exam Eye Exam: EOMI, Normal appearance Pupil Exam: NORMAL ACCOMODATION - ENT Exam ENT Exam: Mucous Membranes Dry - Neck Exam Neck exam: Full Rom - Respiratory Exam Respiratory Exam: Clear to PA & Lateral, UNREMARKABLE. absent: Rales, Rhonchi, Wheezes - Cardiovascular Exam Cardiovascular Exam: REGULAR RHYTHM, +S1, +S2 - GI/Abdominal Exam GI & Abdominal Exam: Normal Bowel Sounds, Soft. absent: Rigid, Tenderness - Extremities Exam Additional comments: Extremities dressed by podiatry, exam limited PICC line in place - Back Exam Back exam: NORMAL INSPECTION - Neurological Exam Neurological exam: Alert, Normal Gait, Oriented x3 - Psychiatric Exam Psychiatric exam: Normal Affect, Normal Mood - Skin Skin Exam: Normal Color, Warm Discharge Plan - Discharge Medications Prescriptions: cefTRIAXone [Rocephin] 2 gm IVPB DAILY 42 Days #42 vial - Follow Up Plan Condition: FAIR Disposition: HOME/ ROUTINE Instructions: Wound Infection (DC), Osteomyelitis (DC), Dermatitis (GEN) Additional Instructions: Take medications as directed. Return to Local ER if symptoms worsen. [place] for IV antibiotics at infusion center tomorrow 01/16/2017 at 7AM. IV infusion to begin tomorrow 01/16/2017 at 8AM. Take "A" elevator to 3rd floor for IV antibiotic infusion. <Marleni Bowden - Last Filed: 01/16/17 13:40> Provider - Provider Date of Admission: 01/13/17 12:56 Attending physician: Marleni Bowden MD Hospital Course - Lab Results Lab Results: Most Recent Lab Values WBC 7.6 10^3/ul (4.5-11.0) 01/15/17 06:30 RBC 4.42 10^6/uL (3.5-6.1) 01/15/17 06:30 Hgb 12.4 g/dL (14.0-18.0) L 01/15/17 06:30 Hct 36.7 % (42.0-52.0) L 01/15/17 06:30 MCV 83.0 fl (80.0-105.0) 01/15/17 06:30 MCH 28.1 pg (25.0-35.0) 01/15/17 06:30 MCHC 33.8 g/dl (31.0-37.0) 01/15/17 06:30 RDW 12.4 % (11.5-14.5) 01/15/17 06:30 Plt Count 239 10^3/uL (120.0-450.0) 01/15/17 06:30 MPV 9.9 fl (7.0-11.0) 01/15/17 06:30 Gran % 56.1 % (50.0-68.0) 01/15/17 06:30 Lymph % (Auto) 25.9 % (22.0-35.0) 01/15/17 06:30 Hale % (Auto) 8.2 % (1.0-6.0) H 01/15/17 06:30 Eos % (Auto) 9.7 % (1.5-5.0) H 01/15/17 06:30 Baso % (Auto) 0.1 % (0.0-3.0) 01/15/17 06:30 Gran # 4.26 (1.4-6.5) 01/15/17 06:30 Lymph # 2.0 (1.2-3.4) 01/15/17 06:30 Hale # 0.6 (0.1-0.6) 01/15/17 06:30 Eos # 0.7 (0.0-0.7) 01/15/17 06:30 Baso # 0.01 K/mm3 (0.0-2.0) 01/15/17 06:30 ESR 15 mm/hr (0.0-15.0) 01/13/17 12:08 PT 10.8 Seconds (9.9-11.8) 01/13/17 12:08 INR 1.00 (0.93-1.08) 01/13/17 12:08 APTT 27.5 Seconds (23.7-30.8) 01/13/17 12:08 Sodium 140 mmol/L (132-148) 01/15/17 06:30 Potassium 3.4 mmol/L (3.6-5.0) L 01/15/17 06:30 Chloride 104 mmol/L (98-107) 01/15/17 06:30 Carbon Dioxide 26 mmol/L (21-33) 01/15/17 06:30 Anion Gap 13 (10-20) 01/15/17 06:30 BUN 12 mg/dL (7-21) 01/15/17 06:30 Creatinine 0.9 mg/dL (0.5-1.4) 01/15/17 06:30 Est GFR ( Amer) > 60 01/15/17 06:30 Est GFR (Non-Af Amer) > 60 01/15/17 06:30 Random Glucose 93 mg/dL (70-110) 01/15/17 06:30 Calcium 8.7 mg/dL (8.4-10.5) 01/15/17 06:30 Phosphorus 3.3 mg/dL (2.5-4.5) 01/13/17 12:08 Magnesium 2.2 mg/dL (1.7-2.2) 01/13/17 12:08 Total Bilirubin 0.3 mg/dL (0.2-1.3) 01/15/17 06:30 AST 23 U/L (17-59) 01/15/17 06:30 ALT 31 U/L (7-56) 01/15/17 06:30 Alkaline Phosphatase 84 U/L (38-126) 01/15/17 06:30 C-React Prot High Sens 7.12 mg/L (1.00-3.00) H 01/13/17 12:08 Total Protein 6.7 g/dL (5.8-8.3) 01/15/17 06:30 Albumin 3.7 g/dL (3.0-4.8) 01/15/17 06:30 Globulin 3.0 gm/dL 01/15/17 06:30 Albumin/Globulin Ratio 1.2 (1.1-1.8) 01/15/17 06:30 Lipase 119 U/L (23-300) 01/13/17 12:08 Procalcitonin < 0.05 NG/ML (0.19-0.49) L 01/13/17 12:08 Urine Color Yellow (YELLOW) 01/13/17 13:26 Urine Appearance Clear (CLEAR) 01/13/17 13:26 Urine pH 6.5 (4.7-8.0) 01/13/17 13:26 Ur Specific [place] 1.020 (1.005-1.035) 01/13/17 13:26 Urine Protein Trace mg/dL (<30 mg/dL) H 01/13/17 13:26 Urine Glucose (UA) Negative mg/dL (NEGATIVE) 01/13/17 13:26 Urine Ketones Negative mg/dL (NEGATIVE) 01/13/17 13:26 Urine Blood Negative (NEGATIVE) 01/13/17 13:26 Urine Nitrate Negative (NEGATIVE) 01/13/17 13:26 Urine Bilirubin Negative (NEGATIVE) 01/13/17 13:26 Urine Urobilinogen 0.2 E.U./dL (<1 E.U./dL) 01/13/17 13:26 Ur Leukocyte Esterase Negative Justin/uL (NEGATIVE) 01/13/17 13:26 Urine RBC Negative /hpf (0-2) 01/13/17 13:26 Urine WBC Negative /hpf (0-6) 01/13/17 13:26 Urine Other Mucus 01/13/17 13:26 Attending/Attestation - Attestation I have personally seen and examined this patient.: Yes I have fully participated in the care of the patient.: Yes I have reviewed all pertinent clinical information, including history, physical exam and plan: Yes Notes (Text): I have seen and examined the patient at bedside. Agree with the above note with the following additions/ exceptions: Briefly this is 41 year old male with history of eczema who was sent by groundwater programs director for evaluation of worsening chronic non healing ulcer on the right toe. MRI is consistent with Osteomyelitis. Patient will need 4-6week of Rocephin which was arranged as an outpatient. MICHAEL showed normal PVR. ID and podiatry consult appreciated. Upon discharge patient will follow up with Dr Dai. Dr Marleni Bowden
--- NOTE | 2017-01-15 20:15 | CP.PCM.PN ---
<Honorio De La Cruz - Last Filed: 01/15/17 20:11> Subjective - Date & Time of Evaluation Date of Evaluation: 01/15/17 Time of Evaluation: 15:00 - Subjective Subjective: Podiatry Progress Note - Dr. Dick 41 year old male patient seen in HBO therapy for cellulitis of right 3rd digit + osteomyelitis. Patient resting comfortably, AAOx3 and NAD. Patient admits to mild pain in his right foot. Per nursing, erythema has decreased in 3rd digit. Patient denies N/V/F/D/C/SOB/calf pain. Offers no other pedal complaints Objective - Vital Signs/Intake and Output Vital Signs (last 24 hours): Temp Pulse Resp BP Pulse Ox 97.5 F L 69 18 110/71 98 01/15/17 07:49 01/15/17 07:49 01/15/17 07:49 01/15/17 07:49 01/15/17 07:49 Intake and Output: 01/15/17 01/16/17 18:59 06:59 Intake Total 480 Balance 480 - Labs Labs: 01/15/17 06:30 01/15/17 06:30 PT 10.8 Seconds (9.9-11.8) 01/13/17 12:08 INR 1.00 (0.93-1.08) 01/13/17 12:08 APTT 27.5 Seconds (23.7-30.8) 01/13/17 12:08 - Constitutional Appears: Well, Non-toxic, No Acute Distress - Extremities Exam Additional comments: Dressing to right foot appears clean/dry/intact with no strikethrough noted - Neurological Exam Neurological Exam: Alert, Awake, Oriented x3 - Psychiatric Exam Psychiatric exam: Normal Affect, Normal Mood Assessment and Plan - Assessment and Plan (Free Text) Assessment: 41 year old male with cellulitis of right 3rd digit + osteomyelitis Plan: Patient seen and evaluted in HBO therapy Discussed with attending, Dr. Dick Chart, labs, vitals reviewed - afebrile, WBC wnl Continue dressing changes by wound care Continue abx via PICC per ID Podiatry will continue to follow patient while in house <Balaji Dick - Last Filed: 01/16/17 07:30> Objective - Vital Signs/Intake and Output Vital Signs (last 24 hours): Temp Pulse Resp BP Pulse Ox 97.5 F L 69 18 110/71 98 01/15/17 07:49 01/15/17 07:49 01/15/17 07:49 01/15/17 07:49 01/15/17 07:49 - Labs Labs: 01/15/17 06:30 01/15/17 06:30 PT 10.8 Seconds (9.9-11.8) 01/13/17 12:08 INR 1.00 (0.93-1.08) 01/13/17 12:08 APTT 27.5 Seconds (23.7-30.8) 01/13/17 12:08 Attending/Attestation - Attestation I have personally seen and examined this patient.: Yes I have fully participated in the care of the patient.: Yes I have reviewed all pertinent clinical information, including history, physical exam and plan: Yes
== END 2017-01-15 18:56 | disposition home or self-care (01) | DRG 294 ==
LOC: ED 10:58 → ERH 12:56 → 5RSO 14:21
PROVIDERS: ADMIT Internal Medicine; ATTEND Hospitalist
PROC: 02HV33Z Insertion of Infusion Device into Superior Vena Cava, Percutaneous Approach (ICD-10-PCS; principal; 2017-01-15)
DX: E11.621 Type 2 diabetes mellitus with foot ulcer (principal); M86.9 Osteomyelitis, unspecified; L97.929 Non-pressure chronic ulcer of unspecified part of left lower leg with unspecified severity; L97.519 Non-pressure chronic ulcer of other part of right foot with unspecified severity; L03.119 Cellulitis of unspecified part of limb; E87.6 Hypokalemia; E11.622 Type 2 diabetes mellitus with other skin ulcer; E11.69 Type 2 diabetes mellitus with other specified complication; I73.9 Peripheral vascular disease, unspecified; B95.61 Methicillin susceptible Staphylococcus aureus infection as the cause of diseases classified elsewhere; Z83.3 Family history of diabetes mellitus; L30.9 Dermatitis, unspecified

== ENCOUNTER 2017-06-15 11:20 | Emergency (ER) | payer OTHER ==
[2017-06-15 11:21] VITALS: BMI 23.9
[2017-06-15 11:38] VITALS: TEMP 98.8
[2017-06-15] MEDS ORDERED: Piperacill/Tazo 4.5gm in NS 4.5 GM/100 ML BAG IVPB STA (12:12)
--- NOTE | 2017-06-15 12:19 | ED PDOC ---
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 Arcos for further evaluation and otherwise without any nausea/ vomiting/headache/dizziness/difficulty breathing/chest pain/abdomen pain/ numbness/tingling/loss of limb function/pain with urination. 06/15/17 12:15 PMD: Dr. Hector Hurst Time/Duration: Other (chronic) Symptom Onset: Gradual Symptom Course: Unchanged Quality: Other (no pain) Activities at Onset: Rest Context: Sitting Past Medical History - Provider Review Nursing Documentation Reviewed: Yes - Travel History Have you recently traveled outside [place] w/in the past 3 mons?: No - Infectious Disease Hx of Infectious Diseases: None - Cardiac Hx Cardiac Disorders: No - Pulmonary Hx Respiratory Disorders: No - Neurological Hx Neurological Disorder: No - HEENT Hx HEENT Disorder: No - Renal Hx Renal Disorder: No - Endocrine/Metabolic Hx Endocrine Disorders: No - Hematological/Oncological Hx Blood Disorders: No - Integumentary Hx Dermatological Disorder: Yes Hx Eczema: Yes Other/Comment: ULCER TO TOES - Musculoskeletal/Rheumatological Hx Musculoskeletal Disorders: No - Gastrointestinal Hx Gastrointestinal Disorders: No - Genitourinary/Gynecological Hx Genitourinary Disorders: No - Psychiatric Hx Psychophysiologic Disorder: No Hx Substance Use: No - Surgical History Hx Tonsillectomy: Yes - Anesthesia Hx Anesthesia: Yes Family/Social History - Physician Review Nursing Documentation Reviewed: Yes Family/Social History: No Known Family HX Smoking Status: Never Smoked Hx Alcohol Use: No Hx Substance Use: No Allergies/Home Meds Allergies/Adverse Reactions: Allergies No Known Allergies Allergy (Verified 06/15/17 11:32) Review of Systems - Review of Systems Constitutional: Normal Eyes: Normal ENT: Normal Respiratory: Normal Cardiovascular: Normal Gastrointestinal: Normal Genitourinary Male: Normal Musculoskeletal: Joint Swelling Skin: Cellulitis Neurological: Normal Endocrine: Normal Hemo/Lymphatic: Normal Psychiatric: Normal Physical Exam Vital Signs Reviewed: Yes Vital Signs Temp Pulse Resp BP Pulse Ox 06/15/17 13:21 79 18 109/68 97 06/15/17 11:40 98.8 F 83 18 107/70 96 06/15/17 11:33 98.8 F 83 16 107/70 96 Temperature: Afebrile Blood Pressure: Normal Pulse: Regular Respiratory Rate: Normal Appearance: Positive for: Well-Appearing, Non-Toxic, Comfortable Pain Distress: None Mental Status: Positive for: Alert and Oriented X 3 - Systems Exam Head: Present: Atraumatic, Normocephalic Pupils: Present: PERRL Extroacular Muscles: Present: EOMI Conjunctiva: Present: Normal Ears: Present: Normal Mouth: Present: Moist Mucous Membranes Pharnyx: Present: Normal Nose (External): Present: Atraumatic Nose (Internal): Present: Normal Inspection Neck: Present: Normal Range of Motion Respiratory/Chest: Present: Clear to Auscultation, Good Air Exchange Cardiovascular: Present: Regular Rate and Rhythm Abdomen: No: Tenderness, Distention, Normal Bowel Sounds, Peritoneal Signs, Rebound, Guarding, McBurney's Point Tender, Rovsing's Sign Present, Hernias, Feeding Tubes, Ostomy Tubes, Mass/Organomegaly, Scars, Other Back: Present: Normal Inspection Upper Extremity: Present: Normal Inspection, Other (right foot swelling/subtle erythema wo fluctuance and with 3rd forefoot ulceration with clear drainage and no fluctuance and otherwise warm/sensation/pink/dp pulses+.) Neurological: Present: GCS=15, CN II-XII Intact, Speech Normal, Motor Func Grossly Intact Skin: Present: Warm, Other (see LLE) Psychiatric: Present: Alert, Oriented x 3, Normal Insight, Normal Concentration Medical Decision Making ED Course and Treatment: you were treated in the ED today for hx of dermatitis, 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 Arcos for further evaluation and otherwise without any nausea/ vomiting/headache/dizziness/difficulty breathing/chest pain/abdomen pain/ numbness/tingling/loss of limb function/pain with urination. You were otherwise breathing easily, pink moist lips, smiling and talking easily, good strength/ sensation, alert/oriented, walking easily, clear lungs, no abdomen tenderness, right 3rd toe ulceration with right forefoot swelling/subtle redness with good pulses/warm/sensation and no specific bony tenderness, no fever temp 98.8, stable heart rate 83, stable breathing rate 18, excellent oxygen level 96% room air, stable blood pressure 107/76 which we recommend repeat in 2-3 days primary care office to determine further treatment, you have blood tests no infection count 9.8, stable blood level hemoglobin 12.5/platelets 258, stable chemistry, lactic acid infection test normal 0.8, mildly elevated sed rate test 42, radiology right foot xray normal, zosyn, observation done in the ED with improvement, had a long discussion with Dr. Arcos who stated that even if mildly high sed rate test 42 you can be discharged home due to no fever/ infection count with normal lactic test and foot xray at this time and she stated that she will have you Augmentin as directed for right foot mild skin infection and coverage of ulcer with plan for outpatient MRI of the right foot which she will coordinate with you and counselled to have you monitor wound and thus discharged home. 1. Recommend augmentin as directed for right foot mild skin infection/ulcer coverage. 2. Recommend daily dressing changes. 3. Recommend follow-up primary care 1-2 days to review symptoms, referral to Dr. Arcos wound care to review symptoms, MRI for right foot. 3. If any worsening pain, fever, chills, nausea, vomiting, difficulty breathing, numbness, loss of limb function, pain with urination or any medical condition then return to the ED. 06/15/17 12:19 06/15/2017 12:58 Foot X-Ray IMPRESSION: Normal right foot radiographs. Dictator: Kang Wiggins MD 06/15/17 13:30 06/15/17 13:48 06/15/17 13:49 06/15/17 14:49 Reassessment Condition: Re-examined, Improved - Lab Interpretations Lab Results: 06/15/17 13:05 06/15/17 13:05 Lab Results 06/15/17 13:05: Sodium 142, Chloride 103, Potassium 4.3, Carbon Dioxide 30, Anion Gap 13, BUN 15, Creatinine 0.9, Est GFR ( Amer) > 60, Est GFR (Non- Af Amer) > 60, Random Glucose 96, Calcium 9.8, Phosphorus 3.7, Magnesium 2.2, Total Bilirubin 0.5, AST 31, ALT 35, Alkaline Phosphatase 83, Total Protein 7.6 , Albumin 4.1, Globulin 3.5, Albumin/Globulin Ratio 1.2 06/15/17 13:05: pO2 44, VBG pH 7.39, VBG pCO2 51.0, VBG HCO3 30.9 H, VBG Total CO2 32.5 H, VBG O2 Sat (Calc) 85.6 H, VBG Base Excess 4.7 H, VBG Potassium 4.3, Sodium 139.0, Chloride 106.0, Glucose 97, Lactate 0.8, FiO2 21.0, Venous Blood Potassium 4.3 06/15/17 13:05: PT 12.6 H, INR 1.10 H, APTT 29.8 06/15/17 13:05: WBC 9.8, RBC 4.40, Hgb 12.5 L, Hct 38.1 L, MCV 86.6, MCH 28.4, MCHC 32.8, RDW 13.0, Plt Count 258, MPV 9.9, Gran % 77.8 H, Lymph % (Auto) 9.6 L , [place] % (Auto) 5.6, Eos % (Auto) 6.9 H, Baso % (Auto) 0.1, Gran # 7.61 H, Lymph # (Auto) 0.9 L, [place] # (Auto) 0.6, Eos # (Auto) 0.7, Baso # (Auto) 0.01, ESR 42 H I have reviewed the lab results: Yes - RAD Interpretation Radiology Orders: 06/15/17 12:22 FOOT RIGHT 3 VIEWS ROUTINE [RAD] Stat Starchmaker: Radiologist (see mdm) - Medication Orders Current Medication Orders: Discontinued Medications Piperacillin Sod/Tazobactam Sod (Zosyn 4.5 Gm In Ns 100ml) 4.5 gm in 100 mls @ 200 mls/hr IVPB STAT STA PRN Reason: Protocol Stop: 06/15/17 12:41 Last Admin: 06/15/17 13:20 Dose: 200 mls/hr eMAR Start Stop Document 06/15/17 13:20 HI (Rec: 06/15/17 13:20 HI [id number]) Intravenous Solution Start Date 06/15/17 Start Time 13:20 Disposition/Present on Arrival - Present on Arrival Any Indicators Present on Arrival: No History of DVT/PE: No History of Uncontrolled Diabetes: No Urinary Catheter: No History of Decub. 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 Arcos for further evaluation and otherwise without any nausea/ vomiting/headache/dizziness/difficulty breathing/chest pain/abdomen pain/ numbness/tingling/loss of limb function/pain with urination. You were otherwise breathing easily, pink moist lips, smiling and talking easily, good strength/ sensation, alert/oriented, walking easily, clear lungs, no abdomen tenderness, right 3rd toe ulceration with right forefoot swelling/subtle redness with good pulses/warm/sensation and no specific bony tenderness, no fever temp 98.8, stable heart rate 83, stable breathing rate 18, excellent oxygen level 96% room air, stable blood pressure 107/76 which we recommend repeat in 2-3 days primary care office to determine further treatment, you have blood tests no infection count 9.8, stable blood level hemoglobin 12.5/platelets 258, stable chemistry, lactic acid infection test normal 0.8, mildly elevated sed rate test 42, radiology right foot xray normal, zosyn, observation done in the ED with improvement, had a long discussion with Dr. Arcos who stated that even if mildly high sed rate test 42 you can be discharged home due to no fever/ infection count with normal lactic test and foot xray at this time and she stated that she will have you Augmentin as directed for right foot mild skin infection and coverage of ulcer with plan for outpatient MRI of the right foot which she will coordinate with you and counselled to have you monitor wound and thus discharged home. 1. Recommend augmentin as directed for right foot mild skin infection/ulcer coverage. 2. Recommend daily dressing changes. 3. Recommend follow-up primary care 1-2 days to review symptoms, referral to Dr. Arcos wound care to review symptoms, MRI for right foot. 3. If any worsening pain, fever, chills, nausea, vomiting, difficulty breathing, numbness, loss of limb function, pain with urination or any medical condition then return to the ED. Prescriptions: Amoxicillin/Clavulanate [Augmentin 875 MG-125 MG] 1 tab PO Q12 10 Days #20 tab Referrals: Hector Dai MD [Primary Care Provider] - Follow up with primary Forms: [employer] ([place])
--- NOTE | 2017-06-15 13:00 | RAD ---
PROCEDURE: Right Foot Radiographs. HISTORY: 42yoM, who stated persistent right foot ulceration COMPARISON: None. FINDINGS: BONES: Normal. No fracture. JOINTS: Normal. SOFT TISSUES: Normal. OTHER FINDINGS: None. IMPRESSION: Normal right foot radiographs.
[2017-06-15 13:26] LABS: VENOUS BLOOD GAS BASE EXCESS 4.7 mmol/L (0.0-2.0); VENOUS BLOOD GAS PO2 44 mm/Hg (30-55); VENOUS BLOOD PH 7.39 (7.32-7.43)
[2017-06-15 13:30] LABS: BASO # 0.01 K/mm3 (0.0-2.0); BASO % 0.1 % (0.0-3.0); EOS # 0.7 (0.0-0.7); EOS % 6.9 % (1.5-5.0); GRAN # 7.61 (1.4-6.5); GRAN % 77.8 % (50.0-68.0); HEMOGLOBIN 12.5 g/dL (14.0-18.0); LYMPH # 0.9 (1.2-3.4); LYMPH % 9.6 % (22.0-35.0); MEAN CELL VOLUME 86.6 fl (80.0-105.0); MEAN CORPUSCULAR HEMOGLOBIN 28.4 pg (25.0-35.0); MEAN CORPUSCULAR HGB CONC 32.8 g/dl (31.0-37.0); MEAN PLATELET VOLUME 9.9 fl (7.0-11.0); MONO # 0.6 (0.1-0.6); MONO % 5.6 % (1.0-6.0); RBC 4.4 10^6/uL (3.5-6.1); WHITE BLOOD COUNT 9.8 10^3/ul (4.5-11.0)
[2017-06-15 13:43] LABS: ALB/GLOB RATIO 1.2 (1.1-1.8); ALBUMIN 4.1 g/dL (3.0-4.8); ALT/SGPT 35 U/L (7-56); AST/SGOT 31 U/L (17-59); BLOOD UREA NITROGEN 15 mg/dL (7-21); CALCIUM 9.8 mg/dL (8.4-10.5); GFR AFRICAN-AMERICAN > 60; GFR NON-AFRICAN AMERICAN > 60; MAGNESIUM 2.2 mg/dL (1.7-2.2)
[2017-06-15 13:50] LABS: INR 1.1 (0.93-1.08); PARTIAL THROMBOPLASTIN TIME 29.8 Seconds (25.1-36.5); PROTHROMBIN TIME 12.6 SECONDS (9.4-12.5)
[2017-06-15 16:07] VITALS: BP 108/72; PULSE 82; RESP 16; O2SAT 98
== END 2017-06-15 16:04 | disposition home or self-care (01) ==
LOC: ED 11:20
DX: L03.115 Cellulitis of right lower limb (principal); M86.8X7 Other osteomyelitis, ankle and foot
CPT/HCPCS: 73630; 80053; 82803; 83735; 84100; 84145; 85025; 85610; 85651; 85730; 86140; 87040; 96374; 99284; J2543

== ENCOUNTER 2017-06-25 12:49 | Day surgery (SDC) | payer OTHER ==
[2017-06-25 13:30] LABS: BASO # 0.02 K/mm3 (0.0-2.0); BASO % 0.3 % (0.0-3.0); EOS # 0.7 (0.0-0.7); EOS % 11.8 % (1.5-5.0); GRAN # 3.43 (1.4-6.5); GRAN % 57.1 % (50.0-68.0); HEMOGLOBIN 13.5 g/dL (14.0-18.0); LYMPH # 1.4 (1.2-3.4); MEAN CELL VOLUME 87.4 fl (80.0-105.0); MEAN CORPUSCULAR HEMOGLOBIN 28.3 pg (25.0-35.0); MEAN CORPUSCULAR HGB CONC 32.4 g/dl (31.0-37.0); MONO # 0.5 (0.1-0.6); MONO % 7.8 % (1.0-6.0); RBC 4.77 10^6/uL (3.5-6.1); RED CELL DISTRIBUTION WIDTH 13.3 % (11.5-14.5)
[2017-06-25 13:32] VITALS: BMI 23.7
[2017-06-25 13:38] LABS: BLOOD UREA NITROGEN 12 mg/dL (7-21); CALCIUM 9.5 mg/dL (8.4-10.5); GFR AFRICAN-AMERICAN > 60; GFR NON-AFRICAN AMERICAN > 60
[2017-06-25 13:39] VITALS: RESP 18
[2017-06-25 13:41] LABS: INR 1.03 (0.93-1.08); PARTIAL THROMBOPLASTIN TIME 30.6 Seconds (25.1-36.5); PROTHROMBIN TIME 11.8 SECONDS (9.4-12.5)
[2017-06-25] MEDS ORDERED: Lidocaine 2% Inj (20ml) ONE (16:47)
[2017-06-25] MEDS ORDERED: HEPARIN SODIUM/NS 1,000 ML IV ONE (16:47)
[2017-06-25 18:59] VITALS: BP 123/85; PULSE 75; TEMP 98.2; O2SAT 100
--- NOTE | 2017-06-25 20:59 | VASCULAR ---
PROCEDURE: Ultrasound and fluoroscopically placed right upper extremity PICC line. HISTORY: On healing ulcer in osteomyelitis right foot. Long-term IV antibiotics. Needs PICC line. PHYSICIAN(S): Dwain Bradshaw MD. TECHNIQUE: The relative risks and indications of the procedure were explained to the patient and consent obtained. The patient was placed supine on the arteriogram table and the right arm prepped and draped in the usual sterile fashion. A tourniquet was applied to the right axilla. 1% Xylocaine was used to anesthetize the skin and soft tissues at the puncture site above the elbow. The right basilic vein was punctured under direct ultrasound guidance with a micropuncture set. A 0.018 guidewire was advanced centrally and used to measure the length to the SVC/RA junction. A 5 [place] single-lumen PICC line 41 cm long was advanced to the SVC/RA junction. The catheter was flushed and secured. The patient tolerated the procedure well. IMPRESSION: 1. Ultrasound and fluoroscopically placed right upper extremity PICC line. A 5 [place] single-lumen PICC line 41 cm long was advanced to the SVC/RA junction.
== END 2017-06-25 18:45 | disposition home or self-care (01) ==
LOC: OPSURG 12:49
PROVIDERS: ATTEND Radiology Vascular & Interventional Radiology
DX: M86.9 Osteomyelitis, unspecified (principal); L97.519 Non-pressure chronic ulcer of other part of right foot with unspecified severity
CPT/HCPCS: 36415; 36569; 76937; 77001; 80048; 85025; 85610; 85730; C1751; J1644